=== PATIENT | male | born 1990 | race Two or more races ===

== ENCOUNTER 2020-07-31 21:25 | Emergency (ER) | payer BC, OTHER ==
[~2020-07-31] VITALS: Ht 177.8 cm; Wt 88.5 kg
[~2020-07-31 21:25] MED LIST: CYCLOBENZAPRINE10 MG ORAL; IBUPROFEN600 MG ORAL; TYLENOL325 MG ORAL
--- NOTE | 2020-07-31 21:45 | NUR ---
ED Nurse Note: Recieved pt from home with c/o right ankle pain after twisting ankle while walking, pain at 8/10 and cant bear weight to area, pt has old fracture of foot with metal plates removed 1 year ago, denies any other discomforts or complaints.
--- NOTE | 2020-07-31 22:08 | Emergency Room Report ---
History of Present Illness General Chief Complaint: Lower Extremity Injury Source: Patient Present Illness HPI Disclaimer: Please note that this report is being documented using DRAGON technology. This can lead to erroneous entry secondary to incorrect interpretation by the dictating instrument. HPI: 27-year male presents for evaluation of right foot pain. Patient states he was walking in his house accidentally twisted his ankle outward. Notes pain at the base of the fifth metatarsal. States he felt a pop in his foot. Prior fracture that was repaired with hardware and subsequent hardware removal 1 year ago. Came in with crutches. States he has difficulty bearing weight. Denies pain in the ankle. Denies pain in the knee. No other injury reported. Exacerbated by bearing weight and eversion. Relieved by rest. 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 EOMI. Resp: Normal work of breathing Skin: Intact. No abrasions, laceration or rash over the exposed skin MSK: Normal tone and bulk. Moving all extremities. No obvious deformity. No tenderness palpation over the anterior or posterior aspect of either the medial or lateral malleolus. Able to dorsiflex and plantarflex the difficulty. No midfoot tenderness. There is tenderness palpation over the base of the fifth metatarsal without overlying swelling or skin breakdown. Neuro: Awake and alert. Mentating appropriately Procedures Splinting Splinting : Consent: Verbal Location: Left ankle Hand-Made Type: plaster Splint: poserior short Pre-Proc Neuro Vasc Exam: normal Post-Proc Neuro Vasc Exam: normal Patient Tolerated: Well Complications: None Medical Decision Making Diagnostic Impression: Primary Impression: Dsouza fracture ER Course 21-year-old male presents for evaluation of foot pain after an ankle twisting injury. Ankle x-rays do not show acute fracture. X-ray of the foot concerning for Dsouza fracture. Difficult to say whether or not it is acute or chronic given the patient's history however compared to the 2015 images the Dsouza fracture is more pronounced and seems to extend to the entire metatarsal. Patient placed in a posterior ankle splint and provided with crutches. He will follow-up with his orthopedic surgeon for reevaluation possible surgical repair. Instructed to return to the emergency department new or worsening symptoms. He understands and agrees with this treatment plan. Other X-Ray Diagnostic Results Other X-Ray Diagnostic Results #1: X-Ray ordered: Left ankle # of Views/Limited Vs Complete: 3 View Indication: Pain EP Interpretation: Yes Interpretation: no dislocation, no soft tissue swelling, no fractures Impression: No acute disease Electronically Signed by: Electronically signed by Dr. Michael Saunders MD Other X-Ray Diagnostic Results #2: X-Ray ordered: Left foot # of Views/Limited Vs Complete: 3 View Indication: Pain EP Interpretation: Yes Interpretation: no soft tissue swelling, other - Nondisplaced fracture of the base of the fifth metatarsal consistent with Dsouza fracture Impression: Other - Acute versus subacute Dsouza fracture Electronically Signed by: Electronically signed by Dr. Michael Saunders MD Last Vital Signs Date Time Temp Pulse Resp B/P (MAP) Pulse Ox O2 Delivery O2 Flow Rate FiO2 07/31/20 21:30 97.7 92 20 140/92 (108) 98 Room Air Disposition: HOME, SELF-CARE Condition: Stable Scripts Hydrocodone Bit/Acetaminophen 7.5-325* (NORCO 7.5-325*) 1 Each Tablet 1 TAB ORAL Q6H PRN for For Pain, #15 TAB 0 Refills Prov: Michael Saunders MD 07/31/20 Ibuprofen* (MOTRIN*) 600 Mg Tablet 600 MG ORAL Q6H PRN for For Pain, #30 TAB 0 Refills Prov: Michael Saunders MD 07/31/20 Referrals: NON PHYSICIAN (PCP) Michael Saunders MD Jul 31, 2020 22:08
[2020-07-31] MEDS ORDERED: HYDROcodone/Acetamin 7.5/325 tab ORAL ONE (22:15)
[2020-07-31] MEDS ORDERED: IBUPROFEN600 M1 ORAL (22:28)
[2020-07-31] MEDS ORDERED: NORCO 7.5-3251 EACH ORAL (22:28)
[2020-07-31 22:35] VITALS: BP 140/92
--- NOTE | 2020-08-01 16:37 | Diagnostic Imaging Report ---
Indication: Pain, trauma Technique: 3 views of the left ankle Comparison: none Findings: The lateral view demonstrates a transverse fracture of the proximal fifth metatarsal, also demonstrated on foot radiograph performed at same time. No ankle fracture demonstrated. The joint spaces are preserved. Impression: Negative for ankle fracture Positive for fifth metatarsal fracture
--- NOTE | 2020-08-01 16:39 | Diagnostic Imaging Report ---
Indication: Pain, trauma Technique: 3 views left foot Comparison: none Findings: There is a transverse nondisplaced fracture of the proximal shaft of the fifth metatarsal. No other acute fractures. No dislocations. The joint spaces are preserved. Impression: Positive for fifth metatarsal fracture
== END 2020-07-31 23:45 | disposition home or self-care (01) ==
LOC: EMR 21:59
DX: S92.355A Nondisplaced fracture of fifth metatarsal bone, left foot, initial encounter for closed fracture (principal); X50.1XXA Overexertion from prolonged static or awkward postures, initial encounter; Y92.009 Unspecified place in unspecified non-institutional (private) residence as the place of occurrence of the external cause
CPT/HCPCS: 29515; 99283